=== PATIENT | female | born 1965 | race Native Hawaiian/Other Pacific Islander ===

== ENCOUNTER 2020-12-19 08:14 | Outpatient (CLI) | payer OTHER ==
[~2020-12-19] VITALS: Ht 160 cm; Wt 106.6 kg
== END 2020-12-19 11:10 | disposition home or self-care (01) ==
LOC: INF 08:14
PROVIDERS: ATTEND Family Medicine
DX: Z23 Encounter for immunization (principal); Z03.89 Encounter for observation for other suspected diseases and conditions ruled out; U07.1 COVID-19
CPT/HCPCS: 96365; M0244

== ENCOUNTER 2021-12-31 10:38 | Emergency (ER) | payer OTHER ==
[~2021-12-31] VITALS: Ht 160 cm; Wt 129.3 kg
[2021-12-31 10:38] VITALS: TEMP 98.7
[2021-12-31 11:32] LABS: PLATELET COUNT 233 K/uL (152-353)
[2021-12-31 11:39] LABS: POTASSIUM 4.2 mmol/L (3.6-5.2)
[2021-12-31 14:00] VITALS: BP 145/71
== END 2021-12-31 14:10 | disposition home or self-care (01) ==
LOC: ED 10:38
PROVIDERS: Emergency Medicine Emergency Medical Services
DX: R07.89 Other chest pain (principal); E11.65 Type 2 diabetes mellitus with hyperglycemia; Z20.822 Contact with and (suspected) exposure to COVID-19
CPT/HCPCS: 36415; 80053; 81002; 81025; 82948; 84484; 85027; 87502; 87635; 93005; 96360; 96361; 96374; 99284; J1815; U0003

== ENCOUNTER 2022-08-27 19:17 | Emergency (ER) | payer OTHER ==
[~2022-08-27] VITALS: Ht 154.9 cm; Wt 113.4 kg
[2022-08-27 22:30] VITALS: BP 156/79; TEMP 98
== END 2022-08-27 22:15 | disposition home or self-care (01) ==
LOC: ED 19:17
DX: S70.02XA Contusion of left hip, initial encounter (principal); S20.212A Contusion of left front wall of thorax, initial encounter; W01.0XXA Fall on same level from slipping, tripping and stumbling without subsequent striking against object, initial encounter; Y92.89 Other specified places as the place of occurrence of the external cause
CPT/HCPCS: 99283